=== PATIENT | male | born 1975 | race Caucasian/White ===

== ENCOUNTER → 2016-06-29 | Outpatient (CLI) | payer BC ==
[~2016-06-29] VITALS: Ht 188 cm; Wt 140.2 kg
[2016-06-29 12:30] VITALS: BP 144/94; PULSE 94; Ht 188 cm; Wt 140.2 kg
== END | disposition home or self-care (01) ==
LOC: C.NEUR 12:11
PROVIDERS: ATTEND Allergy & Immunology Allergy
DX: R06.83 Snoring (principal); R06.81 Apnea, not elsewhere classified; R53.83 Other fatigue; F32.9 Major depressive disorder, single episode, unspecified

== ENCOUNTER → 2016-08-03 | Outpatient (CLI) | payer BC ==
--- NOTE | 2016-08-04 06:33 | SPLIT NIGHT TECHNICIAN REPORT ---
[facility] Split Night Polysomnogram - Vice President Of Contracts Report Study date: 08/03/2016 Referring Physician: Briseida Hernadez PA-C Name: DILCIA MAY Vice President Of Contracts: LLOYD Franklin. Date of : 1975 Height: 40 years, Height 6' 2" Sex: Male Weight: 309 lbs Age: 40 Neck Circum: 18 inches BMI: Medications: 39.67 Duloxetine 60 mg Patient History 40 yr. old male here for a modified split night sleep study if AHI > 15. Patient complains of fatigue and is lethargic despite 8 hours of sleep, snoring and witnessed apneas. Patients [place] sleepiness scale score is 12/24. Patient had to work later than expected, he called and was told he could come in late. He arrived at the lab at 10:57pm. Parameters Monitored NPSG: E1-M2, E2-M1, Fp1-M2, Fp2-M1, F3-M2, F4-M2, F4-M1, C3-M2, C4-M2, C4-M1, O1-M2, O2-M2, O2-M1, T3-M2, T4-M1, P3-M2, P4-M1, CHIN1, CHIN2, HR, EKG, Legs, PFLOW, SNOR, FLOW, CFLOW, Tidal Volume, THOR, ABDO, SpO2, PLTH, CPRESS, ETCO2 Wave, ETCO2, pH SLEEP SUMMARY DATA DIAGNOSTIC TREATMENT Lights Out: 11:17:19 PM 2:07:49 AM Lights On: 2:03:49 AM 6:19:49 AM Total Recording Time (TRT): 166.5 min. 251.5 min. Total Sleep Time (TST): 122.0 min. 240.5 min. NREM Time: 93.5 min. 65.0 min. REM Time: 28.5 min. 175.5 min. Sleep Period Time (SPT): 148.0 min. 243.5 min. Sleep Efficiency (SE): 73 % 96 % Sleep Latency: 17.5 min. 8.0 min. Arousal Index: 7.4 4.0 PAP Treatment Levels: 4, 6, 7, 8, 9, 10, 11, 12, 13, 14 * Optimal Pressure(s) SLEEP STAGING DATA DIAGNOSTIC TREATMENT Duration (min) TST % Duration (min) TST % Stage Wake: 44.5 min. -- 11.0 min. -- WASO: 27.0 min. -- 3.0 min. -- NREM: 93.5 min. 77 % 65.0 min. 27 % Stage N1: 21.0 min. 17 % 10.5 min. 4 % Stage N2: 70.0 min. 57 % 49.0 min. 20 % Stage N3: 2.5 min. 2 % 5.5 min. 2 % REM: 28.5 min. 23 % 175.5 min. 73 % POSITIONAL DATA Event Count Index Event Count Index Supine: 39 47.8 55 29.8 Supine NREM: 32 43.2 1 73.5 Supine REM: 7 93 54 29 Non-Supine: 32 26.3 28 13.0 Non-Supine NREM: 7 8.6 18 16.8 Non-Supine REM: 25 62.5 10 9.2 AROUSAL SUMMARY DATA: Event Count Index Event Count Index Apnea Arousals: 2 5.4 1 0.7 Hypopnea Arousals: 6 3.0 5 1.2 Snore Arousals: 6 3.0 3 0.7 PLM Arousals: 2 1.0 0 0.0 Non-Specific Arousals: 1 0.5 4 1.0 Total Arousals: 15 7.4 16 4.0 MYOCLONUS (PLM) Event Count Index Event Count Index PLM: 146 71.8 0 0.0 PLM AROUSAL: 2 1.0 0 0.0 PLM W/O AROUSAL 146 71.8 0 0.0 PLM W/RESP EVENT 11 0.0 0 0.0 MYOCLONUS (PLM) Event Count Index Event Count Index LM: 0 7.9 55 13.7 LM AROUSAL: 0 0.0 5 1.2 LM W/O AROUSAL LM W/RESP EVENT LM NON SPECIFIC 144 70.8 45 11.2 HEART RATE DATA DIAGNOSTIC TREATMENT Sleep (bpm): 90 81 REM (bpm): 90 93 NREM (bpm): 91 90 Tachycardia Count: 0 0 Tachycardia Duration: 0.00 0 Bradycardia Count: 0 0 Bradycardia Duration: 0.00 0 DIAGNOSTIC PORTION TREATMENT PORTION RESPIRATORY DATA Event Count Index Event Count Index AHI: -- 34.9 -- 20.7 RDI: -- 34.9 -- 21 Obstructive Apnea: 11 5.4 3 0.7 Central Apnea: 0 0.0 0 0.0 Mixed Apnea: 0 0.0 0 0.0 Hypopnea: 60 29.5 80 20.0 RERA: 0 0.0 0 0.0 Total Apneas: 11 5.4 3 0.7 RESPIRATORY DATA REM NREM SLEEP REM NREM SLEEP Supine Position: Obstructive Apneas: 3 3 6 2 0 2 Central Apneas: 0 0 0 0 0 0 Mixed Apneas: 0 0 0 0 0 0 Hypopneas: 4 29 33 52 1 53 RERA 0 0 0 0 0 0 Total Supine Events: 7 32 39 54 1 55 Supine AHI: 93 43.2 47.8 29 73.5 29.8 Supine RDI: 93.3 43.2 47.8 29.5 73.5 29.8 REM NREM SLEEP REM NREM SLEEP Non-Supine Position: Obstructive Apneas: 5 0 5 1 0 1 Central Apneas: 0 0 0 0 0 0 Mixed Apneas: 0 0 0 0 0 0 Hypopneas: 20 7 27 9 18 27 RERA 0 0 0 0 0 0 Total Supine Events: 25 7 32 10 18 28 Supine AHI: 62.5 8.6 26.3 9.2 16.8 13.0 Supine RDI: 62.5 8.6 26.3 9.2 16.8 13.0 OXYGEN DESTAURATION DATA: Event Count Index Event Count Index REM Desaturations: 34 71.6 58 19.8 NREM Desaturations: 49 31.4 16 14.8 SNORE DATA DIAGNOSTIC TREATMENT Snore Time: 2.6 2:15:49 AM Snore TST%: 1 7 Snore Arousal Count: 6 3 Snore Arousal Index: 3.0 0.7 Desaturation Event Summary: Minimum %SpO2 Event Count Mean/Min/Max Duration(sec.) Desaturation Index % Time In Bed > 90 163 22.4 / 6.0 / 60.0 34.2 69.2 86 - 90 52 13.2 / 6.5 / 46.3 25.9 29.1 81 - 85 1 20.3 / 20.3 / 20.3 10.8 1.3 76 - 80 0 N/A 0.0 0.3 71 - 75 0 N/A 0.0 0.0 66 - 70 0 N/A 0.0 0.0 61 - 65 0 N/A 0.0 0.0 56 - 60 0 N/A 0.0 0.0 51 - 55 0 N/A 0.0 0.0 < 50 0 N/A 0.0 0.0 OXYGEN SATURATION DATA DIAGNOSTIC TREATMENT SpO2 Mean Sleep: 91 % 92 % SpO2 Mean REM: 90 % 93 % SpO2 Mean NREM: 91 % 90 % SpO2 Minimum Sleep: 76 % 78 % SpO2 Minimum REM: 76 % 78 % SpO2 Minimum NREM: 81 % 81 % Time Below 90% (TST): 25.2 20.1 Time Below 88% (TST): 7.7 5.7 Total REM NREM Awake <50% 0.0 min. 0.0 min. 0.0 min. 0.0 min. 51 - 60% 0.0 min. 0.0 min. 0.0 min. 0.0 min. 61 - 70% 0.0 min. 0.0 min. 0.0 min. 0.0 min. 71 - 80% 1.4 min. 1.2 min. 0.0 min. 0.2 min. 81 - 90% 125.8 min. 29.6 min. 75.9 min. 20.3 min. 91 - 100% 286.3 min. 172.3 min. 79.7 min. 34.2 min. Average 91 92 91 91 Minimum SpO2 76 76 81 76 Desaturation Event Index 24.4 27.1 24.6 15.1 # Desat. Events below 89% 103 55 45 3 Time(%) with Saturation below 89% 5.7 3.5 1.7 0.5 Time(min.) with Saturation below 89% 23.5 14.3 7.1 2.1 Recording Vice President Of Contracts Comments: Mr. May slept in the right and supine positions. No cardiac arrhythmia. PLMs noted. No bruxism noted. Snoring was noted and scored as a 4 on a scale of 0 through 5. (0=no snoring, 5=snoring loud enough to be heard through a closed door or down the [address] way) At 2:07 am, Mr. May met specific Split-Night criteria during the diagnostic portion of this study. CPAP was initiated at +4 CMH2O room air and up-titrated to an optimal level of +14 CMH2O no Cflex. A medium Wilkinson and Paykel Simplus, was used during titration. Mr. May did not wake to use the restroom during the night. Mr. May stated, that was a normal night. The final report will be interpreted and signed by a sleep physician. The completed physician report will then be placed in the patient medical record. Therapy Event: Therapy (cm H20) 0 4 6 7 8 9 Total Time at Pressure (min.) 166.5 25.1 13.4 35.9 9.4 4.8 TST at Pressure (min.) 122.0 16.1 13.4 35.4 8.4 4.8 # Periods 1 1 1 1 1 1 Sleep Onset (min.) 17.5 8.0 0.0 0.0 0.0 0.0 REM Onset (min.) 97.5 N/A N/A 28.9 0.0 0.0 Sleep Efficiency % 73 64 100 98 89 100 Wakefulness (%) 26.7 35.8 0.0 1.4 10.6 0.0 Wakefulness (min.) 44.5 9.0 0.0 0.5 1.0 0.0 NREM 1 (%) 12.6 21.9 0.0 2.8 21.2 0.0 NREM 1 (min.) 21.0 5.5 0.0 1.0 2.0 0.0 NREM 2 (%) 42.0 42.3 100.0 65.2 0.0 0.0 NREM 2 (min.) 70.0 10.6 13.4 23.4 0.0 0.0 NREM 3 (%) 1.5 0.0 0.0 15.3 0.0 0.0 NREM 3 (min.) 2.5 0.0 0.0 5.5 0.0 0.0 REM (%) 17.1 0.0 0.0 15.3 68.1 100.0 REM (min.) 28.5 0.0 0.0 5.5 6.4 4.8 # Arousals 15 2 1 6 3 0 Arousal Index 7.4 7.4 4.5 10.2 21.4 0.0 # Snore 117 47 264 257 34 0 Snore Index 57.5 174.8 1,180.1 435.0 242.4 0.0 AHI 34.9 55.8 0.0 11.8 78.4 101.0 AHI Supine 47.8 N/A N/A N/A 112.5 101.0 AHI Non-Supine 26.3 55.8 0.0 11.8 51.3 N/A NREM AHI 25.0 55.8 0.0 4.0 60.0 N/A REM AHI 67.4 N/A N/A 54.5 84.2 101.0 RDI 34.9 55.8 0.0 11.8 78.4 101.0 # Obstructive 11 0 0 1 1 1 # Central Ap 0 0 0 0 0 0 # Mixed 0 0 0 0 0 0 # Hypopneas 60 15 0 6 10 7 RERAS 0 0 0 0 0 0 Total Respiratory Events 71 15 0 7 11 8 Time Below SpO2 89.00% (min.) 11.5 1.4 0.1 2.3 2.4 1.3 Mean NREM SpO2 (%) 91 90 90 90 91 N/A Mean REM SpO2 (%) 90 N/A N/A 89 90 89 Mean Sleep SpO2 (%) 91 90 90 90 90 89 Min NREM SpO2 (%) 81 86 88 81 88 N/A Min REM SpO2 (%) 76 N/A N/A 78 84 78 Position Supine (min.) 48.9 0.0 0.0 0.0 3.7 4.8 Position Non-supine (min.) 73.1 16.1 13.4 35.4 4.7 0.0 LM Index Sleep 79.7 37.2 4.5 11.8 28.5 0.0 LM Index NREM 96.9 37.2 4.5 12.0 60.0 N/A LM Index REM 23.2 N/A N/A 10.9 18.7 0.0 Mean Heart Rate (bpm) 90 83 88 89 83 81 Min Heart Rate (bpm) 74 78 76 75 74 69 Therapy (cm H20) 10 11 12 13 14 Total Time at Pressure (min.) 14.7 11.2 29.8 24.4 82.7 TST at Pressure (min.) 14.7 11.2 29.8 24.4 82.2 # Periods 1 1 1 1 1 Sleep Onset (min.) 0.0 0.0 0.0 0.0 0.0 REM Onset (min.) 0.0 0.0 0.0 0.0 0.0 Sleep Efficiency % 100 100 100 100 99 Wakefulness (%) 0.0 0.0 0.0 0.0 0.6 Wakefulness (min.) 0.0 0.0 0.0 0.0 0.5 NREM 1 (%) 0.0 0.0 0.0 0.0 2.4 NREM 1 (min.) 0.0 0.0 0.0 0.0 2.0 NREM 2 (%) 0.0 0.0 0.0 0.0 1.8 NREM 2 (min.) 0.0 0.0 0.0 0.0 1.5 NREM 3 (%) 0.0 0.0 0.0 0.0 0.0 NREM 3 (min.) 0.0 0.0 0.0 0.0 0.0 REM (%) 100.0 100.0 100.0 100.0 95.2 REM (min.) 14.7 11.2 29.8 24.4 78.7 # Arousals 0 0 0 1 3 Arousal Index 0.0 0.0 0.0 2.5 2.2 # Snore 9 5 25 19 119 Snore Index 36.8 26.8 50.3 46.6 86.9 AHI 53.2 42.8 20.1 22.1 1.5 AHI Supine 53.2 42.8 20.1 22.1 0.0 AHI Non-Supine N/A N/A N/A N/A 2.0 NREM AHI N/A N/A N/A N/A 0.0 REM AHI 53.2 42.8 20.1 22.1 1.5 RDI 53.2 42.8 20.1 22.1 1.5 # Obstructive 0 0 0 0 0 # Central Ap 0 0 0 0 0 # Mixed 0 0 0 0 0 # Hypopneas 13 8 10 9 2 RERAS 0 0 0 0 0 Total Respiratory Events 13 8 10 9 2 Time Below SpO2 89.00% (min.) 1.3 0.7 0.0 0.2 0.1 Mean NREM SpO2 (%) N/A N/A N/A N/A 93 Mean REM SpO2 (%) 91 92 93 93 93 Mean Sleep SpO2 (%) 91 92 93 93 93 Min NREM SpO2 (%) N/A N/A N/A N/A 91 Min REM SpO2 (%) 84 84 89 85 88 Position Supine (min.) 14.7 11.2 29.8 24.4 22.2 Position Non-supine (min.) 0.0 0.0 0.0 0.0 60.0 LM Index Sleep 8.2 21.4 16.1 9.8 10.9 LM Index NREM N/A N/A N/A N/A 34.3 LM Index REM 8.2 21.4 16.1 9.8 9.9 Mean Heart Rate (bpm) 84 82 78 77 77 Min Heart Rate (bpm) 76 74 65 69 63
--- NOTE | 2016-08-05 09:51 | POLYSOMNOGRAPH REPORT ---
CLINICAL DATA: A 40-year-old male with BMI of 39.7, referred by Briseida Hernadez PA-C, Dr. Cerda and myself for a sleep study with a history of fatigue, witnessed apneic episodes and loud snoring. This was a split-night sleep study. His [place] sleep score was 12/24. SLEEP ARCHITECTURE: For the diagnostic portion of the study, total sleep period was 148 minutes. Total sleep time was 122 minutes divided between 93.5 minutes of non-REM sleep and 28.5 minutes of REM sleep. Sleep onset latency was 17.5 minutes. Arousal index was 7.4. Sleep efficiency was 73%. Sleep consisted of stage N1 17%, N2 57%, N3 2%, REM 23%. For the treatment portion of the study, total sleep period was 243.5 minutes. Total sleep time was 240.5 minutes divided between 65 minutes of non-REM sleep and 175.5 minutes of REM sleep. Sleep latency was 8 minutes. Sleep efficiency was 96%. Arousal index was 4. Sleep consisted of stage N1 4%, stage N2 20%, stage N3 2%, and REM 73%. This suggests REM rebound. AROUSAL DATA: Prior to treatment, 15 arousals were recorded for an index of 7.4 per hour. During treatment, 16 arousals were recorded for an index of 4 per hour. PLM DATA: Prior to treatment, 144 limb movements during sleep were noted for an index of 70.8 per hour. Following treatment, 45 limb movements during sleep were noted for an index of 11.3 per hour. EKG: Heart rates ranged from 81-93 beats per minute. No arrhythmias were noted. RESPIRATORY DATA: Prior to treatment, severe sleep apnea was documented. The AHI was 35. There were 11 obstructive apneic episodes and 60 hypopneic episodes recorded. During treatment, the average AHI was 20.7. There were 30 obstructive apneic episodes and 80 hypopneic episodes. OXIMETRY DATA: Nocturnal hypoxemia was seen prior to treatment. Oxygen maribel was 76% during REM prior to treatment. Mean saturation with treatment was 92%. PROJECT MANAGEMENT MANAGER'S COMMENTS AND TREATMENT SUMMARY: The patient slept in the right and supine positions. Snoring was severe, rated 4 on a scale of 1-5. At 2:07 a.m., the patient met split-night criteria. He was treated with a medium Wilkinson and Paykel Simplus mask. CPAP was begun and titrated up to his final pressure setting of 14 cm of water pressure. At 14 cm of water pressure, the patient slept for 82.2 minutes with an AHI of 1.5. IMPRESSION: Severe obstructive sleep apnea/hypopnea with the diagnostic AHI of 35 with nocturnal hypoxemia corrected with CPAP 14 cm of water pressure, Wilkinson and Paykel Simplus medium mask. RECOMMENDATIONS: The patient should be started on the above-noted treatment regimen and seen back in followup within 90 days to document efficacy and compliance. MTDD
== END | disposition home or self-care (01) ==
LOC: C.NEUR 21:00
PROVIDERS: ATTEND Allergy & Immunology Allergy
DX: F32.9 Major depressive disorder, single episode, unspecified (principal); R53.83 Other fatigue; R06.83 Snoring; R06.81 Apnea, not elsewhere classified

== ENCOUNTER → 2016-08-20 | Outpatient (CLI) | payer BC ==
[~2016-08-20] VITALS: Ht 188 cm; Wt 142.9 kg
[2016-08-20 16:13] VITALS: BP 145/95; PULSE 96; Ht 188 cm; Wt 142.9 kg
== END | disposition home or self-care (01) ==
LOC: C.NEUR 15:17
PROVIDERS: ATTEND Internal Medicine Pulmonary Disease
DX: G47.33 Obstructive sleep apnea (adult) (pediatric) (principal)

== ENCOUNTER → 2017-12-23 | Outpatient (CLI) | payer BC ==
[2017-12-23 12:51] LABS: BASO % 0.7 %; BASO ABS # 0.04 K/uL (0-0.2); EOS % 4.7 %; EOS ABS # 0.27 K/uL (0-0.5); HEMATOCRIT 44.9 % (42-52); HEMOGLOBIN 15.4 g/dL (14.0-18.0); LYMPH % 27.5 %; LYMPH ABS # 1.59 K/uL (1.2-3.4); MEAN CELL VOLUME 91.6 fL (80-100); MEAN CORPUSCULAR HEMOGLOBIN 31.4 pg (25-34); MEAN CORPUSCULAR HGB CONC 34.3 g/dl (32-36); MEAN PLATELET VOLUME 12.2 fL (7.4-10.4); MONO % 6.2 %; MONO ABS # 0.36 K/uL (0.11-0.59); NEUT % 60.9 %; NEUT ABS # 3.53 K/uL (1.4-6.5); PLATELET COUNT 209 K/uL (130-400); RED CELL DISTRIBUTION WIDTH CV 13.2 % (11.5-14.5); WHITE BLOOD COUNT 5.79 K/uL (4.8-10.8)
[2017-12-23 13:34] LABS: ALBUMIN 3.9 gm/dl (3.4-5.0); ALKALINE PHOSPHATASE 80 U/L (45-117); ALT/SGPT 72 U/L (12-78); AST/SGOT 44 U/L (15-37); BLOOD UREA NITROGEN 15 mg/dl (7-18); CALCIUM 8.6 mg/dl (8.5-10.1); CARBON DIOXIDE 26 mmol/L (21-32); CHOLESTEROL 208 mg/dl (0-200); CREATININE 0.87 mg/dl (0.60-1.40); GLUCOSE 107 mg/dl (70-99); LDL CHOLESTEROL CALCULATED 138 mg/dl; SODIUM 139 mmol/L (136-145); TOTAL PROTEIN 7.2 gm/dl (6.4-8.2)
== END | disposition home or self-care (01) ==
LOC: C.LABMFLN 08:51
PROVIDERS: ATTEND Physician Assistant
DX: F31.4 Bipolar disorder, current episode depressed, severe, without psychotic features (principal); F41.1 Generalized anxiety disorder